=== PATIENT | male | born 1990 | race Hispanic/Latino ===

== ENCOUNTER 2017-05-31 13:21 | Emergency (ER) | payer SELFPAY | END 2017-05-31 14:40 | disposition home or self-care (01) | LOC: EDH 13:21 | DX: J01.90 Acute sinusitis, unspecified (principal); M95.0 Acquired deformity of nose; S80.02XA Contusion of left knee, initial encounter; X58.XXXA Exposure to other specified factors, initial encounter; Y93.89 Activity, other specified; Y92.89 Other specified places as the place of occurrence of the external cause; Y99.8 Other external cause status | CPT/HCPCS: 99281 ==